=== PATIENT | male | born 1960 | race African-American/Black ===

== ENCOUNTER 2016-07-21 16:28 | Emergency (ER) | payer BC ==
[~2016-07-21] VITALS: Ht 190.5 cm; Wt 104.8 kg
[2016-07-21 16:41] VITALS: BP_SYST 140
[2016-07-21] MEDS ORDERED: IBUPROFEN 800 MG TABLET PO ONE (17:00)
[2016-07-21] MEDS ORDERED: SULFAMETHOXAZOLE/TRIMETHOPR DS 1 TABLET PO ONE (17:00)
[2016-07-21] MEDS ORDERED: CEPHALEXIN 500 MG CAPSULE PO ONE (17:00)
[2016-07-21 17:17] VITALS: BP_SYST 140
== END 2016-07-21 17:17 | disposition home or self-care (01) ==
LOC: SED 16:28
DX: L03.211 Cellulitis of face (principal); I10 Essential (primary) hypertension; E78.00 Pure hypercholesterolemia, unspecified; Z86.73 Personal history of transient ischemic attack (TIA), and cerebral infarction without residual deficits
CPT/HCPCS: 99284

== ENCOUNTER 2016-08-12 05:14 | Emergency (ER) | payer BC ==
[~2016-08-12] VITALS: Ht 188 cm; Wt 109.8 kg
--- NOTE | 2016-08-12 05:18 | NUR ---
Patient to ER bed 8 to gown for evaluation. Side rails up. Report given to PHILLIP ARMENTA.
--- NOTE | 2016-08-12 05:20 | NUR ---
Pt came to ED accompanied by self. Pt A/Ox4, ambulatory with steady gait. C/O being unable to urinate x2 days. Pt states that when he voids, it is a "dribble" instead of a "flow." NKA. Pt denies SOB, CP, pain, n/v/d. Vital signs stable on RA. Hx of enlarged prostate, htn, hyperlipidemia, and tia.
[2016-08-12 05:21] VITALS: BP 147/88; PULSE 71; RESP 14; TEMP 99; O2SAT 96
[2016-08-12 05:42] LABS: BILIRUBIN,URINE NEGATIVE (NEGATIVE); BLOOD, URINE NEGATIVE (NEGATIVE); CLARITY/URINE CLEAR (CLEAR); COLOR,URINE YELLOW (YELLOW); GLUCOSE,URINE NEGATIVE (NEGATIVE); KETONES,URINE NEGATIVE (NEGATIVE); LEUKOCYTE ESTERASE ,URINE NEGATIVE (NEGATIVE); NITRITE, URINE NEGATIVE (NEGATIVE); PH,URINE 5.5 (5.0-8.0); PROTEIN URINE NEGATIVE (NEGATIVE); UROBILINOGEN,URINE 0.2 (0.2-1.0)
--- NOTE | 2016-08-12 06:10 | NUR ---
ED MD Frank at bedside examining pt
--- NOTE | 2016-08-12 06:20 | NUR ---
# 18 FR Craven catheter with use of sterile technique. Immediate return of 300 cc clear, yellow urine noted. Bedside drainage bag placed below level of bladder. Pt tolerated procedure well.
[2016-08-12 06:41] LABS: EOSINOPHILS # (AUTO) 0.1 K/uL (0.0-0.4); MONOCYTES # (AUTO) 0.5 K/uL (0.0-1.0); NEUTROPHILS # (AUTO) 2.7 K/uL (1.8-7.7)
[2016-08-12 06:48] LABS: BASOPHILS % (AUTO) 0.3 % (0.0-2.0); EOSINOPHILS % (AUTO) 2.3 % (0.0-4.0); HEMATOCRIT 42.3 % (36-54); HEMOGLOBIN 13.8 g/dL (14.0-18.0); LYMPHOCYTES # (AUTO) 2.4 K/uL (1.0-5.5); LYMPHOCYTES % (AUTO) 42.9 % (20.5-51.5); MEAN CORPUSCULAR HEMOGLOBIN 28 pg (27-31); MEAN CORPUSCULAR HGB CONC 33 % (32-36); MEAN CORPUSCULAR VOLUME 85 fL (79.0-98.0); MONOCYTES % (AUTO) 8.9 % (1.7-9.3); NEUTROPHILS % (AUTO) 45.6 % (40.0-70.0); PLATELET COUNT (AUTO) 162 K/uL (130-430); WHITE BLOOD COUNT (AUTO) 5.7 K/uL (4.8-10.8)
[2016-08-12 06:55] LABS: CALCIUM 9.1 mg/dL (8.4-11.0); CREATININE 1.1 mg/dL (0.55-1.30); POTASSIUM 4.2 mmol/L (3.5-5.1)
[2016-08-12 07:00] LABS: ALBUMIN 3.6 g/dL (3.4-4.8); TOTAL BILIRUBIN 0.4 mg/dL (0.0-1.0); TOTAL PROTEIN, SERUM 7.5 g/dL (6.4-8.3)
--- NOTE | 2016-08-12 07:16 | NUR ---
Pt lying in bed. No acute distress noted. Denies sob, cp, n/v/d, and pain. Craven catheter in place, draining clear, yellow urine. Secured in place and bag below bladder. Vital signs stable. Report given to PHILLIP Ambriz. All care endorsed.
--- NOTE | 2016-08-12 07:26 | NUR ---
Recieved report from night nurse, patient is resting comfortably in bed with no complaints of pain. Waiting for lab results and changing josue bag to leg bag and then patient will be discharged
[2016-08-12 07:50] VITALS: BP 120/81; PULSE 56; RESP 16; TEMP 98.6; O2SAT 95
--- NOTE | 2016-08-12 07:50 | NUR ---
Patient given written and verbal discharge instructions and verbalizes understanding. ER MD discussed with patient the results and treatment provided. Patient in stable condition. Craven leg bag was attached and educated to patient, verbalized understanding. ID arm band removed. Rx of keflex and flomax given. Patient educated on pain management and to follow up with PMD. Pain Scale 0. Opportunity for questions provided and answered.
[2016-08-13 11:15] LABS: FREE PSA 0.21 ng/mL; PROSTATE SPECIFIC AG TOTAL 0.6 ng/mL (0.0-4.0)
== END 2016-08-12 07:50 | disposition home or self-care (01) ==
LOC: SED 05:14
DX: R33.9 Retention of urine, unspecified (principal); N40.0 Benign prostatic hyperplasia without lower urinary tract symptoms; I10 Essential (primary) hypertension; E78.00 Pure hypercholesterolemia, unspecified; Z86.73 Personal history of transient ischemic attack (TIA), and cerebral infarction without residual deficits
CPT/HCPCS: 36415; 80053; 81003; 84153; 85025; 85610-TC; 85730-TC; 99284